=== PATIENT | female | born 1980 | race Hispanic/Latino ===

== ENCOUNTER 2022-11-19 16:38 | Observation (INO) | payer BC ==
--- OUTSIDE RECORDS SUMMARY | 2022-11-19 16:42 | XMS REPORT | Continuity of Care Document ---
:1980 Author Organization [facility] t Address [address] [facility] [address] [place] [address] Care Team Providers Name Role Phone Pcp, Patient Does Not Have A Primary Care Physician [id number] Adrián Ge Attending Clinician Unavailable Dana Molina Attending Clinician Unavailable [email or web address] Attending Clinician Unavailable Mally Vargas Attending Clinician MALLY DOWNING Attending Clinician Unavailable Faye Rajan PA-C Attending Clinician Doctor Unassigned, Onward Attending Clinician Unavailable [email or web address] Admitting Clinician Unavailable Payers Payer Name Policy Type Policy Number Effective Date Expiration Date S inge [place] [id number] 2021 00:00:00 [place] 6 [id number] Common [facility] t [facility] Problems Condition Condition Condition Status Onset Resolution Last Treating Co mments Source Name Details Category Date Date Treatment Clinician Date Breast Breast Disease Active Univers pain pain 1-07 ity of 00:00: [address] General General Disease Active Overview: Univ ers counseling counseling 1-07 Formattin ity of and advice and advice 00:00: g of this [place] for for 00 note Medical contracept contracept might be Branch rashida rashida different management management from the original. 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 pain [facility] Allergies, Adverse Reactions, Alerts Allergy Allergy Status Severity Reaction(s) Onset Inactive Treating Comm ents Source Name Type Date Date Clinician Penicill Propensi Active Dizziness 2013-04 Uni vers ins ty to 008 ity of adverse 00:00: [place] reaction 00 Medical s Branch Hydrocod Propensi Active Dizziness 2012-04 Uni vers one ty to 04-22 ity of adverse 00:00: [place] reaction 00 Medical s Branch penicill penicill Active Unknown Commo n in V in V [facility] Social History Social Habit Start Date Stop Date Quantity Comments Source History of Common Spirit - Tobacco Use [facility] Sex Assigned At Common Sp jazzy - [facility] Exposure to 2021-07-27 2021-08-06 Not sure [facility] SARS-CoV-2 00:00:00 09:52:00 [facility] (event) Branch Alcohol intake 2021-08-06 2021-08-06 Current University of 00:00:00 00:00:00 non-drinker of [facility] alcohol Branch (finding) Tobacco use and 2013-02-20 2013-02-20 Never used Universit y of exposure 00:00:00 00:00:00 [facility] Smoking Status Start Date Stop Date Source Never Smoker [facility] Medications Ordered Filled Start Stop Current Ordering Indication Dosage Frequency Signature Comments Components Source Medication Medication Date Date Medication? Clinician (SIG) Name Name Amitriptylelodia Amitriptyli No 1{table QD Amitriptyl ne HCl 75 ne HCl 75 7-06 t_at_be ine HCl 75 MG MG 00:00: dtime} MG 00 fluconazole 2021-2- No [id number] 150mg Take 1 Univers (DIFLUCAN) 5-12 05-13 tablet by ity of 150 mg 00:00: 04:59 [place] tablet [place] :00 now for 1 Medical dose. Branch cephALEXin Yes [id number] 500mg Take 1 Univers 500 mg 5-08 capsule by ity of capsule 00:00: mouth 2 [place] 00 (two) Medical times Branch daily. topiramate 0 Yes 50mg Take 50 mg U nivers 50 mg 5-04 by mouth 2 ity of tablet 00:00: (two) [place] times Medical daily. Branch solifenacin Yes 10mg Take 10 mg Univers 10 mg 5-04 by mouth ity of tablet 00:00: daily. [address] propranoloL 0 Yes 20mg Take 20 mg Univers 10 mg 3-11 by mouth 2 ity of tablet 00:00: (two) [place] times Medical daily. Branch Urelle Urelle 2019-0 2020- No Hannah 1 tablet Com mon 317 09-13 [place] Spirit 00:00: 00:00 - [facility] 00 :00 [facility] Diflucan Diflucan Yes Hannah 1 tablet Common 4-25 [place] [facility] 00:00: - [facility] 00 [facility] Propranolol Propranolol Yes Hannah 1 capsule Common HCl ER HCl ER [place] Spirit [facility] Solifenacin Solifenacin Yes Hannah 1 tablet Common Succinate Succinate Qeuenie S pirit [facility] Topiramate Topiramate Yes Hannah 1 tablet Common Hiddenite Spirit [facility] Nitrofurant Nitrofurant Yes Hannah 1 capsule Common oin oin [place] with food Spirit Macrocrysta Macrocrysta or milk - CHI l l [facility] Oxybutynin Oxybutynin Yes Hannah 1 tablet Common Chloride Chloride Hiddenite Spi rit [facility] Propranolol Propranolol No 1{capsu QD Propranolo HCl ER 60 HCl ER 60 le} l HCl ER MG MG 60 MG Solifenacin Solifenacin No 1{table QD Solifenaci Succinate Succinate t} n 10 MG 10 MG Succinate 10 MG Topiramate Topiramate No 1{table BID Topiramate 50 MG 50 MG t} 50 MG Oxybutynin Oxybutynin No 1{table BID Oxybutynin Chloride 5 Chloride 5 t} Chloride 5 MG MG MG Propranolol Propranolol No 1{capsu QD Propranolo HCl ER 60 HCl ER 60 le} l HCl ER MG MG 60 MG Topiramate Topiramate No 1{table BID Topiramate 50 MG 50 MG t} 50 MG Nitrofurant Nitrofurant No 1{capsu QD Nitrofuran oin oin 02-05 le_with toin Macrocrysta Macrocrysta 00:00 _food_o Macrocryst l 100 mg l 100 mg :00 r_milk} al 100 mg Nitrofurant Nitrofurant No 1{capsu QD Nitrofuran oin oin 02-05 le_with toin Macrocrysta Macrocrysta 00:00 _food_o Macrocryst l 100 mg l 100 mg :00 r_milk} al 100 mg Immunizations Ordered Filled Immunization Date Status Comments [facility] e Immunization Name Name Rubella 2007-11-07 Completed University 00:00:00 [facility] Td 2003-04-01 Completed [facility] 00:00:00 [facility] Vital Signs Vital Name Observation Time Observation Value Comments Source height 2021-10-04 18:15:00 60 [in_i] [facility] weight 2021-10-04 18:15:00 133.4 [lb_av] Common [facility] temperature 2021-10-04 18:15:00 97.9 [degF] [facility] bmi 2021-10-04 18:15:00 26.05 kg/m2 [facility] oximetry 2021-10-04 18:15:00 97 % [facility] respiratory rate 2021-10-04 18:15:00 16 /min Comm on [facility] blood pressure 2021-10-04 18:15:00 132 mm[Hg] Common [facility] blood pressure 2021-10-04 18:15:00 79 mm[Hg] Common [facility] diastolic [facility] height 2021-08-09 11:30:00 60 [in_i] [facility] weight 2021-08-09 11:30:00 143.8 [lb_av] [facility] temperature 2021-08-09 11:30:00 97.2 [degF] Common [facility] bmi 2021-08-09 11:30:00 28.08 kg/m2 [facility] oximetry 2021-08-09 11:30:00 98 % [facility] respiratory rate 2021-08-09 11:30:00 16 /min Comm on [facility] blood pressure 2021-08-09 11:30:00 137 mm[Hg] Common [facility] - systolic [facility] blood pressure 2021-08-09 11:30:00 75 mm[Hg] [facility] diastolic [facility] Procedures This patient has no known procedures. Encounters Start End Encounter Admission Attending Care Care Encounter Source Date/Time Date/Time Type Type Clinicians Facility Department ID 2021-10-09 Outpatient Luma, STLMLC STLMLC [id number] Common 08:06:00 Adrián [facility] 2021-09-21 Outpatient Lmua, STLMLC STLMLC [id number] Common 09:32:00 Adrián [facility] 2021-04-26 Outpatient Luma, STLMLC STLMLC [id number] Common 14:30:41 Adrián [facility] 2021-04-26 Outpatient Luma, STLMLC STLMLC [id number] Common 13:13:04 Adrián [facility] 2021-04-26 Outpatient Luma, STLMLC STLMLC [id number] Common 13:11:18 Adrián [id number] [facility] 2021-04-26 Outpatient Molina, Na STLMLC STLMLC [id number] Common 12:27:17 83533 [facility] 2021-04-26 Outpatient Dana Molina STLMLC STLMLC [id number] Common 11:09:12 11062 [facility] 2023-04-19 2023-04-19 Outpatient MHIE MHIE [id number] [facility] 13:00:00 13:00:00 17 paulette Palacio 2022-10-19 2022-10-19 Outpatient GC_GCBZW_Ka PRIV PRIV [id number] [facility] 00:00:00 00:00:00 diyala_S [id number] Medic al 2022-10-15 2022-10-15 Outpatient GC_GCBZW_Ka PRIV PRIV [id number] [facility] 00:00:00 00:00:00 diyala_S [id number] Medic al 2022-10-12 2022-10-12 Outpatient MHIE MHIE [id number] [facility] 13:00:00 13:00:00 [place] 2022-04-13 2022-04-13 Outpatient MHIE MHIE [id number] [facility] 13:00:00 13:00:00 15 paulette CedilloHakeem 2021-10-06 2021-10-06 Outpatient MHIE MHIE [id number] [facility] 13:00:00 13:00:00 14 paulette Palacio 2021-10-04 2021-10-04 NO CHARGE STLMLC STLMLC [id number] Common 00:00:00 00:00:00 [facility] 2021-08-10 2021-08-10 [facility] [id number] [facility] 00:00:00 00:00:[address] [id number] [id number] [place] as FIDEL?BLEA [phone] [address] MEDICAL OFFICE BUILDING 2021-08-09 2021-08-09 NO CHARGE STLMLC STLMLC [id number] Common 00:00:00 00:00:00 [facility] 2021-08-06 2021-08-06 Outpatient R [facility] [id number] Univers 10:00:00 10:52:59 MALLY ity o f [facility] 2021-08-06 2021-08-06 Urgent JarrodMally [facility] [id number] Univers 10:00:00 10:20:00 Care SatinderFaye [facility] [id number] [facility] [id number] [place] FIDEL?BLEA [id number] Ga dical [address] MEDICAL OFFICE BUILDING 2021-08-06 2021-08-06 Orders Doctor FAYE [id number] Univers 00:00:00 00:00:00 Only Unassigned, LIAM [id number] ity of Onward [facility] [id number] [place] as [id number] [address] 2021-04-07 2021-04-07 Outpatient MHIE MHIE [id number] [facility] 13:00:00 13:00:00 13 [facility] 2020-09-16 2020-09-16 Outpatient MHIE MHIE [id number] [facility] 13:00:00 13:00:00 12 [place] 2020-09-05 2020-09-05 Outpatient STLMLC STLMLC [id number] Common 00:00:00 00:00:00 Spirit [facility] 2020-03-29 2020-03-29 Outpatient MHIE MHIE [id number] [facility] 13:00:00 13:00:00 11 [facility] 2019-11-06 2019-11-06 Outpatient MHIE MHIE [id number] [facility] 13:15:00 13:15:00 10 [facility] 2019-11-06 2019-11-06 Outpatient MHIE MHIE [id number] [facility] 13:15:00 13:15:00 09 [facility] 2019-10-14 2019-10-14 [facility] [id number] Common 11:30:00 11:30:00 t Specialty/U Sp jazzy Specialty rology - [facility] 2019-09-16 2019-09-16 [facility] [id number] Common 11:15:00 11:15:00 t Specialty/U Sp jazzy Specialty rology - [facility]I [facility] 2019-09-02 2019-09-02 Out[facility] [id number] Common 11:30:00 11:30:00 t Specialty/U Sp jazzy Specialty rology - [facility] 2019-07-01 2019-07-01 Outpatient MHIE LAVELLE [id number] [facility] 13:00:00 13:00:00 08 paulette Palacio 2019-06-16 2019-06-16 [facility] [id number] Common 15:35:00 15:35:00 t Specialty/U Sp jazzy Specialty rology - [facility] 2019-06-16 2019-06-16 [id number] Common 09:06:00 09:06:00 t Specialty/U Sp jazzy Specialty rology - [facility] 2019-06-15 2019-06-15 [facility] [id number] Common 11:00:00 11:00:00 t Specialty/U Sp jazzy Specialty rology - [facility] 2019-06-05 2019-06-05 [facility] [id number] Common 11:45:00 11:45:00 t Specialty/U Sp jazzy Specialty rology - [facility] 2019-05-25 2019-05-25 [facility] [id number] Common 10:25:00 10:25:00 t Specialty/U Sp jazzy Specialty rology - [facility] 2019-04-17 2019-04-17 Out[facility] [id number] Common 13:03:00 13:03:00 t Specialty/U Sp jazzy Specialty rology - [facility] 2019-04-16 2019-04-16 Out[facility] [id number] Common 11:45:00 11:45:00 t Specialty/U Sp jazzy Specialty rology - [facility] 2019-01-28 2019-01-28 Outpatient IE LAVELLE [id number] [facility] 13:00:00 13:00:00 07 paulette Palacio 2019-01-09 2019-01-09 Outpatient IE IE [id number] [facility] 13:00:00 13:00:00 06 paulette Palacio 2018-12-05 2018-12-05 [place] [facility] [id number] Common 13:00:00 13:00:00 t Specialty/U Sp jazzy Specialty rology - [facility] 2018-11-19 2018-11-19 Outpatient [facility] [id number] Common 16:35:00 16:35:00 t Specialty/U Sp jazzy Specialty rology - [facility] 2018-11-19 2018-11-19 Outpatient [facility] [id number] Common 12:57:00 12:57:00 t Specialty/U Sp jazzy Specialty rology - [facility] 2018-10-24 2018-10-24 Outpatient [facility] [id number] Common 10:54:00 10:54:00 t Specialty/U Sp jazzy Specialty rology - [facility] 2018-10-16 2018-10-16 Outpatient [facility] [id number] Common 10:20:00 10:20:00 t Specialty/U Sp jazzy Specialty rology - [facility] 2018-09-26 2018-09-26 Outpatient IE IE [id number] [facility] 13:00:00 13:00:00 05 paulette Palacio 2018-09-16 2018-09-16 Outpatient [facility] [id number] Common 11:48:00 11:48:00 t Specialty/U Sp jazzy Specialty rology - [facility] 2018-07-21 2018-07-21 Outpatient [facility] [id number] Common 11:02:00 11:02:00 t Specialty/U Sp jazzy Specialty rology - [facility] 2018-07-16 2018-07-16 Outpatient [facility] [id number] Common 10:14:00 10:14:00 t Specialty/U Sp jazzy Specialty rology - [facility] 2018-07-11 2018-07-11 Outpatient [facility] [id number] Common 13:45:00 13:45:00 t Specialty/U Sp jazzy Specialty rology - [facility] 2018-07-07 2018-07-07 Outpatient [facility] [id number] Common 12:15:00 12:15:00 t Specialty/U Sp jazzy Specialty rology - [facility] 2018-07-04 2018-07-04 Outpatient [facility] [id number] Common 13:00:00 13:00:00 t Specialty/U Sp jazzy Specialty rology - [facility] 2018-06-30 2018-06-30 Outpatient [facility] [id number] Common 09:02:00 09:02:00 t Specialty/U Sp jazzy Specialty rology - [facility] 2018-06-20 2018-06-20 Outpatient IE IE [id number] [facility] 13:15:00 13:15:00 04 paulette Palacio 2018-04-22 2018-04-22 Outpatient [facility] [id number] Common 08:54:00 08:54:00 t Specialty/U Sp jazzy Specialty rology - [facility] 2018-03-21 2018-03-21 Outpatient [facility] [id number] Common 13:30:00 13:30:00 t Specialty/U Sp jazzy Specialty rology - [facility] 2018-03-14 2018-03-14 Outpatient [facility] [id number] Common 13:00:00 13:00:00 t Specialty/U Sp jazzy Specialty rology - [facility] 2018-02-14 2018-02-14 Outpatient IE IE [id number] [facility] 13:00:00 13:00:00 03 paulette Palacio 2017-12-13 2017-12-13 Outpatient [facility] [id number] Common 11:15:00 11:15:00 t Specialty/U Sp jazzy Specialty rology - [facility] 2017 2017 Outpatient [facility] [id number] Common 14:35:00 14:35:00 t Specialty/U Sp jazzy Specialty rology - [facility] 2017-08-23 2017-08-23 Outpatient [facility] [id number] Common 14:00:00 14:00:00 t Specialty/U Sp jazzy Specialty rology - [facility] 2017-08-09 2017-08-09 Outpatient [facility] [id number] Common 11:48:00 11:48:00 t Specialty/U Sp jazzy Specialty rology - [facility] 2017-08-09 2017-08-09 Outpatient MHIE MHIE [id number] [facility] 08:45:00 08:45:00 02 paulette Palacio 2017-07-29 2017-07-29 Out[place] [facility] [id number] Common 11:06:00 11:06:00 t Specialty/U Sp jazzy Specialty rology - [facility] 2017-07-26 2017-07-26 Outpatient MHIE MHIE [id number] [facility] 09:30:00 09:30:00 01 paulette Palacio 2017-07-24 2017-07-24 Outpatient [facility] [id number] Common 12:44:00 12:44:00 t Specialty/U Sp jazzy Specialty rology - [facility] 2017-07-23 2017-07-23 Outpatient [facility] [id number] Common 09:55:00 09:55:00 t Specialty/U Sp jazzy Specialty rology - [facility] 2017-07-19 2017-07-19 Outpatient [facility] [id number] Common 15:00:00 15:00:00 t Specialty/U Sp jazzy Specialty rology - [facility] 2017-04-26 2017-04-26 Outpatient MHIE MHIE [id number] [facility] 13:00:00 13:00:00 00 paulette Palacio Results This patient has no known results.
--- NOTE | 2022-11-19 19:32 | RAD REPORT ---
EXAM DESCRIPTION: Medina Perea (2 Views)11/19/2022 7:19 pm CLINICAL HISTORY: Chest pain COMPARISON: None FINDINGS: The lungs appear clear of acute infiltrate. The heart is normal size IMPRESSION: No acute abnormalities displayed
[2022-11-19 20:31] VITALS: BMI 24.8
[2022-11-19] MEDS ORDERED: TAMSULOSIN 0.4 MG SR CAP PO SCH (21:00)
[2022-11-19] MEDS ORDERED: DIPHENHYDRAMINE 25 MG TAB/CAP PO PRN (21:02)
[2022-11-19] MEDS ORDERED: LOPERAMIDE HCL 2 MG CAPSULE PO PRN (21:02)
[2022-11-19] MEDS ORDERED: ONDANSETRON 4 MG/2 ML VIAL IV PRN (21:02)
[2022-11-19 21:05] LABS: Absolute Lymphocytes (CBC) 1.6 K/uL (0.7-4.9); Hematocrit 41.1 % (36.0-45.0); Lymphocytes % 18.1 % (15.3-44.8); MCV 89.5 fL (80-100); Platelets 163 thou/uL (152-406); RBC Red Blood Cell Count 4.59 M/uL (3.86-4.86)
[2022-11-19 21:06] LABS: Potassium 3.7 mEq/L (3.5-5.1)
[2022-11-19] MEDS ORDERED: POLYETHYL GLY 3350 17 GM/DOSE PO PRN (21:17)
[2022-11-19 21:40] LABS: Bilirubin Direct 0.1 mg/dL (0-0.2); Bilirubin Indirect, Calculated 0.4 mg/dL (0.2-0.8); Bilirubin Total 0.5 mg/dL (0.2-1.0); Protein, Total 7.8 g/dL (6.4-8.2)
[2022-11-19 21:43] LABS: Phosphorus 4.5 mg/dL (2.5-4.9); Thyroid Stimulating Hormone 1.8 uIU/mL (0.358-3.740)
--- NOTE | 2022-11-19 21:49 | RAD REPORT ---
EXAM DESCRIPTION: CT - Abdomen Pelvis W Contrast - 11/19/2022 9:26 pm CLINICAL HISTORY: Abdominal pain COMPARISON: None TECHNIQUE: Computed axial tomography of the abdomen and pelvis was obtained. 100 cc Isovue-300 is ad ministered intravenously. Oral contrast was given. All CT scans are performed using dose optimization technique as appropriate and may include automated exposure control or mA/KV adjustment according to patient size. FINDINGS: 9 millimeter calculus right UPJ with mild to moderate right hydronephrosis. Delay in concentration co ntrast right kidney. Liver, spleen, pancreas, adrenals and left kidney unremarkable. No evidence of diverticulitis. Normal appendix No adnexal mass IMPRESSION: 9 millimeter calculus right UPJ with mild to moderate right hydronephrosis
[2022-11-19 22:03] LABS: Specific Gravity 1.025 (1.005-1.030); Urine Bilirubin NEGATIVE (Negative); Urine Blood Negative (Negative); Urine Clarity Clear (Clear); Urine Color Colorless (Yellow); Urine Glucose NEGATIVE (Negative); Urine Protein NEGATIVE (Negative); Urine Urobilinogen Normal (Normal); Urine pH 6.5 (5.0-7.0)
[2022-11-19] MEDS: FENTANYL CITR 100 MCG/2 ML IV PRN (22:15)
[2022-11-19 22:16] LABS: Protime INR 1.02
[2022-11-19] MEDS: NACHLORIDE 0.45% 1,000 ML IV SCH (22:51)
[2022-11-20 06:40] LABS: Absolute Lymphocytes (CBC) 1.9 K/uL (0.7-4.9); Hematocrit 38.4 % (36.0-45.0); Lymphocytes % 32.5 % (15.3-44.8); MCV 88.9 fL (80-100); MPV 11.4 fL (7.6-11.3); Platelets 144 thou/uL (152-406); RBC Red Blood Cell Count 4.31 M/uL (3.86-4.86)
[2022-11-20 06:41] LABS: Magnesium 2.1 mg/dL (1.6-2.4); Potassium 3.6 mEq/L (3.5-5.1)
[2022-11-20] MEDS: FENTANYL CITR 100 MCG/2 ML IV PRN (07:54)
[2022-11-20] MEDS: NACHLORIDE 0.45% 1,000 ML IV SCH (07:54)
--- NOTE | 2022-11-20 07:58 | ER ---
Nurse's Notes [facility] Name: Brenda Shukla Age: 42 yrs Sex: Female : 1980 Arrival Date: 11/19/2022 Time: 16:38 Bed External Waiting Private MD: Adrián Ge V Diagnosis: Abdominal pain, Generalized Presentation: 11/19 17:23 Chief complaint: Patient states: RLQ abdominal pain since 0230 AM. No fever. No N/V/D. ll1 Coronavirus screen: Vaccine status: Patient reports receiving the 2nd dose of the covid vaccine. Client denies travel out of the [place] in the last 14 days. At this time, the client does not indicate any symptoms associated with coronavirus-19. Ebola Screen: Patient denies travel to an Ebola-affected area in the 21 days before illness onset. Initial Sepsis Screen: Does the patient meet any 2 criteria? No. Patient's initial sepsis screen is negative. Does the patient have a suspected source of infection? Yes: Acute abdominal pain. Risk Assessment: Do you want to hurt yourself or someone else? Patient reports no desire to harm self or others. Onset of symptoms was November 19, 2022. 17:23 Method Of Arrival: Ambulatory ll1 17:23 Acuity: FAUSTO 3 ll1 Historical: - Allergies: 17:22 PENICILLINS; ll1 17:22 Hydrocodone-Acetaminophen; ll1 - PMHx: 17:22 Hypertensive disorder; ll1 - PSHx: 17:22 hysterectomy; ll1 - Immunization history:: Client reports receiving the 2nd dose of the Covid vaccine. - Social history:: Smoking status: Patient denies any tobacco usage or history of. Vital Signs: 17:23 BP 138 / 97; Pulse 73; Resp 17; Temp 97.5; Pulse Ox 100% ; Weight 53.52 kg; Height 4 ll1 ft. 11 in. ; Pain 10/10; 17:23 Body Mass Index 23.83 (53.52 kg, 149.86 cm) ll1 17:23 Pain Scale: Adult ll1 ED Course: 16:40 Patient arrived in ED. rg4 16:41 Adrián Ge MD is Private Physician. rg4 16:48 Brant Campbell MD is Attending Physician. cp3 17:24 Triage completed. ll1 17:24 Arm band placed on. ll1 18:08 Brant Campbell MD is Attending Physician. cp3 11/20 07:56 Adrián Ge MD is Hospitalizing Provider. ll1 Administered Medications: No medications were administered Outcome: 07:57 Decision to Hospitalize by Provider. ll1 07:57 Patient left the ED. ll1 Signatures: Brant Campbell MD MD cp3 Albina Ward Rubi 4 Sheron Alexander, RN RN ll1 Meghann Ferrari, RN RN kb3 Corrections: (The following items were deleted from the chart) 11/19 22:46 19:22 called [facility] Nurse 1910 talked to Cathleen stated will be here in 2+ hours. sp sp 22:47 19:22 called [facility] Nurse 1910 talked to Cathleen stated will be here in 2+ hours. kb3 kb3 22:48 19:22 called [facility] Nurse 1910 talked to Cathleen stated will be here in 2+ hours. kb3 kb3 22:48 19:22 called [facility] Nurse 1910 talked to Cathleen stated will be here in 2+ hours. kb3 sp 22:49 19:22 called [facility] Nurse 1910 talked to Cathleen stated will be here in 2+ hours. kb3 kb3
[2022-11-20] MEDS ORDERED: CIPROFLOXACIN 400mg IV 400 MG/200 ML BAG IV SCH (09:00)
[2022-11-20] MEDS ORDERED: KCL 20 MEQ/100 mL IVPB 20 MEQ/100 ML BAG IV SCH (09:00)
[2022-11-20] MEDS ORDERED: Ringers Lactate 1,000 ML IV ONE (09:19)
[2022-11-20] MEDS: HYDROMORPHONE HCL 1 MG/ML INJ ONE ×2 (09:31→09:38)
[2022-11-20] MEDS ORDERED: propofoL 200 MG/20 ML VIAL IV ONE (09:57)
[2022-11-20] MEDS ORDERED: FENTANYL CITR 100 MCG/2 ML ONE (09:57)
[2022-11-20] MEDS ORDERED: MIDAZOLAM HCL 2 MG/2 ML INJ ONE (09:58)
[2022-11-20] MEDS ORDERED: ONDANSETRON 4 MG/2 ML VIAL ONE (09:58)
--- NOTE | 2022-11-20 10:11 | P.CNS ---
Date of Consult: 11/19/22 Reason for Consult: RLQ pain Requesting Physician: Adrián Ge V Chief Complaint: RLQ pain History of Present Illness: 42-year-old woman with hypertension, migraine headaches, and history of IC status post vaginal hysterectomy presents with sudden onset of right lower quadrant pain. The pain was severe in nature and present for less than 1 day of duration. She denied any associated nausea or vomiting initially, though this did develop overnight. She denied any fever or chills. She denied any dysuria or gross hematuria. Allergies: Penicillin and hydrocodone yield rashes Past medical history as above Past surgical history as above Social history: No history of smoking Examination: Uncomfortable appearing and in mild to moderate distress No dyspnea or sign of respiratory distress Alert, awake, oriented x3 Pulse 2+ and regular Abdomen soft, right lower quadrant mild tenderness appreciated with some rebound noted Musculoskeletal normal and ambulatory with ease without limitation 11/19/2022 CT abdomen and pelvis with oral and IV contrast (my review of imaging): 9 mm proximal ureteral/UPJ calculus with hydronephrosis without additional upper tract renal calculi noted. Radiologist impression: 9 mm calculus right UPJ with mild to moderate hydronephrosis. Findings: Liver, spleen, pancreas, adrenals and left kidney unremarkable. No evidence of diverticulitis. Normal appendix. No adnexal mass. 11/19/2022 chest x-ray normal 11/19- WBC 5.8, hemoglobin 13.2, platelets 144, creatinine 1.24 improved with hydration to 1.16, INR 1.02, UA micro negative Assessment and recommendation: 42-year-old woman with hypertension, migraine headaches, history of IC s/p vaginal hysterectomy with right lower quadrant pain associated with 9 mm proximal/UPJ obstructive ureterolithiasis. -Given the significant pain requiring hospital admission as well as the size of the stone, I counseled the patient that she was unlikely to be able to pass it and thus surgical intervention was warranted. I explained the presence of a ureteral stent and she understood the potential for stent discomfort. We discussed potential attempt at right-sided ureteroscopy with laser lithotripsy prior to stent placement, but I explained that given the proximal location of the stone, this may be difficult on the initial excursion. -Risks of the procedure were discussed to include ureteral injury, impaction of the stone resulting in need for nephrostomy tube placement. -She will be planned for urgent right ureteral stent placement in the a.m. -NPO post 2 AM, IV fluids, pain management, EKG Allergies hydrocodone Adverse Reaction (Verified 11/19/22 21:34) Hives/Rash Penicillins Adverse Reaction (Verified 11/19/22 20:32) Nausea/Vomiting Home medications list reviewed: Yes Home Medications: Atorvastatin Calcium [Lipitor] 10 mg PO DAILY 11/19/22 Elagolix Sodium [Orilissa] 200 mg PO BID 11/19/22 Propranolol [Inderal*] 10 mg PO BID 11/19/22 Spironolactone [Aldactone] 50 mg PO DAILY 11/19/22 Topiramate [Topamax] 50 mg PO BID 11/19/22 - Past Medical/Surgical History Diabetic: No -: Migraines -: Hypertension -: Hysterectomy - Social History Alcohol use: Yes CD- Drugs: No Caffeine use: No Place of Residence: Home Physical Examination Temp Pulse Resp BP Pulse Ox 97.6 F 70 18 115/68 100 11/20/22 08:00 11/20/22 08:00 11/20/22 09:30 11/20/22 08:00 11/20/22 08:00 - Problems (1) RLQ abdominal pain Current Visit: Yes Status: Acute (2) Ureterolithiasis Current Visit: Yes Status: Acute Critical Care: No Time Spent Managing Pts care (In Minutes): 30
[2022-11-20] MEDS ORDERED: LIDOCAINE 1% MPF 5 ML VIAL ONE (10:12)
[2022-11-20] MEDS ORDERED: dexAMETHasone 10 MG/ML VIAL ONE (10:23)
--- NOTE | 2022-11-20 10:58 | P.OP ---
Date of Service: 11/20/22 Preoperative diagnosis: Right ureterolithiasis 9 mm Right lower quadrant pain Postoperative diagnoses: Same Principal procedures: Cystoscopy Right retrograde pyelography Right ureteral stent placement Indication for procedure: Ms. Shukla is a 42-year-old woman with hypertension, migraine headaches, and history of IC status post vaginal hysterectomy with right lower quadrant pain associated with a 9 mm proximal right ureteral/UPJ calculus with hydronephrosis. Because of severity of the pain and the size of the stone, patient was counseled and recommended for right ureteral stent placement. Findings and Operative Technique The patient was consented in the preoperative holding area before being tra nsferred to the operative suite where general anesthesia was induced using an LMA. She had been given ciprofloxacin 400 mg IV antimicrobial prophylaxis, and pneumoboots were provided for DVT prophylaxis. She was placed in the lithotomy position, padded and secured to the table appropriately, and her genitalia was prepped with Hibiclens before being draped in standard fashion. The case was begun using a 22 Jordanian rigid cystoscope to traverse the urethra and into the bladder with ease. The bladder was decompressed of fluid and urine, and surveyed. The ureteral orifice was somewhat posterior and localization but otherwise near the usual position. Because of some mild stenosis of the ureteral orifice, I required the tip of the sensor wire to gain access into the orifice over which I passed the 5 Jordanian ureteral access catheter just into the orifice about 1 to 2 cm. I then performed a retrograde pyelogram. Right retrograde pyelography: Using a 70: 30 mixture of Omnipaque and saline, contrast was injected via the lumen of the 5 Jordanian ureteral access catheter and did propagate up a relatively nondilated distal into the mid ureter before reaching a point of a filling defect in the proximal ureter consistent with a radiolucent calculus. There was residual contrast within the bowels that overlie the right kidney and obscured the nephrogram from the contrast instillation; however, I was able to identify contrast entry into the renal pelvis. As a result, I passed a sensor wire via the 5 Jordanian ureteral access catheter up the ureter and beyond the point of obstruction coiling it within the putative upper pole of the right kidney. Over the wire, I passed a 6 Jordanian by 24 cm double-J ureteral stent with a coil observed fluoroscopically in the upper pole and 1 cystoscopically formed in her bladder. I then decompressed her bladder of fluid and urine, and the remove the cystoscope. She was then taken out of the lithotomy position, awakened from general anesthesia, transferred to a stretcher, and then transferred to the recovery room in good condition. Complications: None Discharge disposition: She should be scheduled as soon as possible for definitive right ureteroscopy with laser lithotripsy and stent exchange.
[2022-11-20] MEDS ORDERED: TRAMADOL 37.5mg/APAP 325mg PER TAB PO ONE (11:05)
[2022-11-20 11:20] VITALS: BP 104/67; TEMP 97; O2SAT 100
--- NOTE | 2022-11-20 11:55 | RAD REPORT ---
EXAM DESCRIPTION: RAD - Urethrocystogrphy Retrograde - 11/20/2022 11:45 am CLINICAL HISTORY: RIGHT STENT COMPARISON: Pelvis Complete dated 10/13/2021; Abdomen Pelvis W Contrast dated 11/19/2022 FINDINGS/IMPRESSION: Eight intraoperative fluoroscopic images were submitted showing placement of a right-sided ureteral stent. Fluoro time: 6 seconds Cumulative dose: 2.5 mGy
--- NOTE | 2022-11-20 15:51 | EKG ---
Test Date: 2022-11-19 Test Time: 21:58:47 Hydraulic Modeling Engineer: MARLIN MEASUREMENT RESULTS: Intervals: Rate: 0 [place]: QRSD: 0 QT: 0 QTc: 0 [place]: P: [place]: QRS: 0 T: 0 INTERPRETIVE STATEMENTS: No QRS complexes found, no ECG analysis possible No previous ECG available for comparison Electronically Signed On 11-20-22 15:50:23 CDT by Tank Berumen
[2022-11-20] MEDS ORDERED: ENOXAPARIN 40 MG/0.4 ML SQ SCH (17:00)
[2022-11-20] MEDS ORDERED: METRONIDAZOLE 500mg IVPB 500 MG/100 ML BAG IV SCH (21:00)
--- NOTE | 2022-11-21 13:00 | EKG ---
Test Date: 2022-11-19 Test Time: 22:08:14 Vice President Of Academic Affairs: MARLIN MEASUREMENT RESULTS: Intervals: Rate: 66 [place]: 124 QRSD: 88 QT: 428 QTc: 448 [place]: P: 79 [place]: 124 QRS: 94 T: 58 INTERPRETIVE STATEMENTS: Normal sinus rhythm Rightward axis Borderline ECG Compared to ECG 11/19/2022 21:58:47 Right-axis deviation now present Electronically Signed On 11-21-22 12:58:01 CDT by Tank Berumen
== END 2022-11-20 14:48 | disposition home or self-care (01) ==
LOC: ER 16:38 → ERHOLD 16:41 → 4TH 20:14
PROVIDERS: ADMIT Internal Medicine; ATTEND Internal Medicine
PROC: 0T768DZ Dilation of Right Ureter with Intraluminal Device, Via Natural or Artificial Opening Endoscopic (ICD-10-PCS; principal; 2022-11-20 10:30)
DX: N13.2 Hydronephrosis with renal and ureteral calculous obstruction (principal); I10 Essential (primary) hypertension; G43.909 Migraine, unspecified, not intractable, without status migrainosus; Z88.0 Allergy status to penicillin
CPT/HCPCS: 93005 ×2; 85025 ×2; 80048 ×2; 36415 ×2; 83735 ×2; 84100; 85610; 80076; 85730; 84443; 81003; 82607; 82306; 74177; 71046; 74450; 51610; 99281; 52332; Q9967; J3480; J2704; J2001; J2250; J3010 ×2; J1100; J1170; J2405; J0744; J7120; G0378 ×4

== ENCOUNTER 2022-11-27 07:32 | Day surgery (SDC) | payer BC ==
[~2022-11-27 07:32] MED LIST: Gentamicin Inj 120 MG in NA CHLORIDE 0.9% 100 ML IV SCH
[2022-11-27] MEDS ORDERED: Ringers Lactate 1,000 ML IV ONE (08:06)
[2022-11-27] MEDS ORDERED: FENTANYL CITR 100 MCG/2 ML ONE (09:10)
[2022-11-27] MEDS ORDERED: LIDOCAINE 1% MPF 5 ML VIAL ONE (09:10)
[2022-11-27] MEDS ORDERED: propofoL 200 MG/20 ML VIAL IV ONE (09:10)
[2022-11-27] MEDS ORDERED: MIDAZOLAM HCL 2 MG/2 ML INJ ONE (09:10)
[2022-11-27] MEDS: CLINDAMYCIN 600MG/D5W 50 ML IV ONE ×2 (09:11→09:27)
[2022-11-27] MEDS ORDERED: ROCURONIUM 50 MG/5 ML VIAL IV ONE (09:11)
[2022-11-27 09:18] VITALS: O2SAT 100
[2022-11-27] MEDS ORDERED: dexAMETHasone 10 MG/ML VIAL ONE (09:33)
[2022-11-27] MEDS ORDERED: ONDANSETRON 4 MG/2 ML VIAL ONE (09:36)
[2022-11-27] MEDS ORDERED: Phenylephrine HCl 10 MG/ML 1 ML VIAL ONE (09:36)
[2022-11-27] MEDS ORDERED: NEOSTIGMINE 1 MG/ML -10 ML VIAL ONE (09:41)
[2022-11-27] MEDS ORDERED: NS 0.9% VIAL 10 ML ONE (09:41)
[2022-11-27] MEDS ORDERED: GLYCOPYRROLATE 0.2 MG/ML SYR ONE ×3 (09:41→09:42)
[2022-11-27] MEDS ORDERED: Mastisol Adhesive Liq ONE (10:05)
[2022-11-27] MEDS ORDERED: SUGAMMADEX SODIUM 200 MG/2 ML VIAL IV ONE (10:14)
[2022-11-27] MEDS ORDERED: PHENAZOPYRIDINE 100MG TAB PO ONE ×2 (10:33→11:43)
[2022-11-27] MEDS ORDERED: TRAMADOL 37.5mg/APAP 325mg PER TAB PO ONE (10:33)
[2022-11-27] MEDS ORDERED: KETOROLAC 30 MG/ML INJ ONE (10:38)
[2022-11-27] MEDS ORDERED: HYDROMORPHONE HCL 1 MG/ML INJ ONE (10:39)
[2022-11-27 11:31] VITALS: BP 126/73; TEMP 97
[2022-11-27] MEDS ORDERED: TRAMADOL 37.5mg/APAP 325mg PER TAB ONE (11:43)
--- NOTE | 2022-11-27 11:55 | OP ---
Surgeon: RUI BUSTAMANTE Preoperative Diagnosis: Right ureterolithiasis, 9 mm. Postoperative Diagnosis: Right ureterolithiasis, 9 mm. Principal Procedures: 1.Cystoscopy. 2.Right retrograde pyelography. 3.Right ureteroscopy with laser lithotripsy. 4.Right ureteral stent exchange. Indication For Procedure: Ms. Shukla is a 42-year-old woman with a history of hypertension and vickie manuela headaches, on topiramate, who presented with an obstructing 9 mm proximal UPJ calculus. This w as causing right flank pain and she underwent cystoscopy with right ureteral stent placement on 11/20. She presents today for definitive management of her stone. Procedure In Detail: The patient was consented in the preoperative holding area before being transfe rred to the operative suite where general anesthesia was induced. She was given clindamycin 600 mg a nd gentamicin 2-3 mg/kg IV antimicrobial prophylaxis. Pneumo boots were provided for DVT prophylaxis . She was placed in the lithotomy position, padded and secured to the table appropriately, and her g enitalia was prepped with Hibiclens before being draped in standard fashion. The case was begun usin g a 22-Slovak rigid cystoscope to traverse the urethra and into the bladder with ease. The bladder w as decompressed of fluid and urine, and the ureteral stent was noted to emanate from the right ureter al orifice. The tip of the stent was grasped and delivered to the meatus leaving the proximal coil o f the stent within the renal pelvis. Fluoroscopically, I was able to advance the Sensor wire via the stent coiling it within the putative upper pole calyx of the kidney. Over the Sensor wire, I remove d the indwelling stent and placed a dual-lumen catheter into the mid proximal ureter. I then perform ed a retrograde pyelogram confirming the appropriate localization of the wire and dual-lumen catheter . I then passed a Bentson guidewire via the second lumen of the dual-lumen catheter coiling alongsid e the indwelling safety wire. I removed the dual-lumen catheter and because of some resistance felt in the distal ureter, I elected to place a ureteral access sheath. Attempts to pass it over the Bent son guidewire were thwarted due to the degree of resistance or narrowing in the distal ureter. So, I passed a 5-Slovak ureteral access catheter over the Bentson guidewire and removed it and replaced it with a superstiff wire as observed fluoroscopically coiled in the kidney. I then removed the 5-Fren ch ureteral access catheter and passed the ureteral access sheath over the Super Stiff wire priti gillis navigating it under direct fluoroscopic visualization into the proximal ureter. I then removed t he superstiff wire and was able to perform direct vision flexible ureteroscopy via the access sheath all the way past the UPJ and into the renal pelvis. I surveyed the upper pole and down into the mid pole calyx where I ran into the 9 mm calculus. I then utilized a 270 nm laser fiber at a setting of 0.8 joules and 20 hertz to begin to quickly fragment the stone. I continued the fragmentation of all of the stone pieces until no piece was larger than about 1-1/2 times the size of the fiber or less t dixon 500 nm in maximum diameter. Followed any stone fragments into the lower pole calyces as well as the upper pole calices to ensure complete fragmentation of all the stone fragments. I then surveyed the renal pelvis and down into the proximal ureter for any additional fragments before the scope was back into the ureteral access sheath and removed. I then utilized the cannula for the ureteral acces s sheath to advance it all the way into the renal pelvis and then attempted to irrigate the renal pel vis to remove a lot of that stone dust. I then injected contrast to perform a retrograde pyelogram t o confirm the intact nature of the collecting system, and once confirmed, I removed the ureteral acce ss sheath. I then backloaded the cystoscope over the indwelling safety wire and passed a 6-Slovak x 24 cm double-J stent with a coil observed fluoroscopically in the upper pole and 1 cystoscopically fo rmed in her bladder. The stent was left on its string/tether, which was then secured later to her in troitus using Mastisol and Steri-Strips after I decompressed her bladder of fluid and urine and some stone dust. She was then taken out of the lithotomy position, awakened from general anesthesia, weiner sferred to a stretcher, and then transferred to the recovery room in good condition. Complications: None. Discharge Disposition: She should keep the ureteral stent for the next 2-3 days and may have it yeimy anna in the office on at the earliest or Saturday would be reasonable. WR/MODL Voice ID: [id number] Report ID: [id number]
--- NOTE | 2022-11-27 14:48 | RAD REPORT ---
EXAM DESCRIPTION: RAD - Urethrocystogrphy Retrograde - 11/27/2022 2:25 pm CLINICAL HISTORY: RT STENT EXCHANGE COMPARISON: Urethrocystogrphy Retrograde dated 11/20/2022 FINDINGS: Total fluoro time: 0.6 minutes
== END 2022-11-27 11:50 | disposition home or self-care (01) ==
LOC: OR 07:32
PROVIDERS: ATTEND Urology
PROC: 0T768DZ Dilation of Right Ureter with Intraluminal Device, Via Natural or Artificial Opening Endoscopic (ICD-10-PCS; 2022-11-27)
PROC: 0TF68ZZ Fragmentation in Right Ureter, Via Natural or Artificial Opening Endoscopic (ICD-10-PCS; principal; 2022-11-27 08:45)
DX: N20.1 Calculus of ureter (principal); I10 Essential (primary) hypertension; G43.909 Migraine, unspecified, not intractable, without status migrainosus
CPT/HCPCS: 87088; 87086; 74450; 51610; 52356; A4216; J2704; J2710; J2001; J2371; J1580; J2250; J3010; J1100; J1170; J2405; J7120